=== PATIENT | male | born 1995 | race Caucasian/White ===

== ENCOUNTER 2025-03-26 11:46 | Emergency (ER) | payer BC ==
[2025-03-26] MEDS ORDERED: Lidocaine 1% (PF) 30 ML VIAL ONE (12:02)
== END 2025-03-26 12:33 | disposition home or self-care (01) ==
LOC: NAV ERS 11:46
DX: S61.412A Laceration without foreign body of left hand, initial encounter (principal); W26.0XXA Contact with knife, initial encounter; Z23 Encounter for immunization
CPT/HCPCS: 12001; 90471; 90715; J2003